=== PATIENT | male | born 1970 | race Two or more races ===

== ENCOUNTER → 2017-03-08 | Outpatient (CLI) | payer OTHER ==
[2017-03-08 12:44] LABS: Aty Lym Flag Slight; CH 26.7; CHCM 31.6; HCT 46.8 % (39.0-53.0); HDW 2.28; HGB 14.6 gm/dL (13.0-17.5); MCH 26.6 pg (25.0-35.0); MCHC 31.2 g/dL (31.0-37.0); MCV 85.1 fL (80.0-100.0); Mean Platelet Volume 7.9; RDW 13.8 % (11.5-15.5); WBC 5.2 k/uL (3.8-10.6); WBC (Perox) 5.21
[2017-03-08 13:04] LABS: ALT 39 U/L (21-72); AST 29 U/L (17-59); Alkaline Phosphatase 59 U/L (38-126); Anion Gap 13 mmol/L; Blood Urea Nitrogen 13 mg/dL (9-20); Calcium 9.9 mg/dL (8.4-10.2); Carbon Dioxide 20 mmol/L (22-30); Chloride 108 mmol/L (98-107); Glucose 91 mg/dL (74-99); Non-African American GFR(MDRD) >60 (>60 ml/min/1.73 sqM); Potassium 4.1 mmol/L (3.5-5.1); Sodium 141 mmol/L (137-145); Total Bilirubin 0.9 mg/dL (0.2-1.3); Total Protein 8.1 g/dL (6.3-8.2)
[2017-03-08 13:36] LABS: Hepatitis B Surface Ag Index 0.06
[2017-03-08 13:42] LABS: Hepatitis B Core IgM Index 0.02
[2017-03-08 13:53] LABS: Hepatitis C Virus IgG Ab Reactive (Negative)
[2017-03-08 14:19] LABS: Add Differential Manual Differential
[2017-03-08 14:22] LABS: Nucleated Red Blood Cells 0 /100 WBC (0-0); Polychromasia Present; Total Cells Counted 100
[2017-03-09 15:45] LABS: HCV Qualitative Result Not detected (Not detected)
== END | disposition home or self-care (01) ==
LOC: LABWHC1 11:46
PROVIDERS: ATTEND Family Medicine
DX: B19.20 Unspecified viral hepatitis C without hepatic coma (principal); Z11.59 Encounter for screening for other viral diseases
CPT/HCPCS: 36415; 80053; 80074; 85025; 87522

== ENCOUNTER 2023-06-03 20:45 | Emergency (ER) | payer OTHER ==
[2023-06-03 20:51] VITALS: RESP 18; TEMP 98.7
--- NOTE | 2023-06-03 21:41 | XR ---
EXAMINATION TYPE: XR cervical spine comp DATE OF EXAM: 06/03/2023 9:21 PM INDICATION: Patient age:Male; 52 years old; Reason for study: neck pain; PHH. COMPARISON: None TECHNIQUE: The cervical spine was imaged in frontal, lateral, odontoid and bilateral oblique. FINDINGS: The osseous structures show normal alignment without evidence of an acute fracture. There are minimal osteophytes noted throughout the cervical spine on the anterior and lateral aspects of the vertebral bodies. The intervertebral disk spaces are narrowed at multiple levels. Pedicles are intact. Soft t issues are within normal limits. The odontoid appears intact. IMPRESSION: 1. No fracture or dislocation. 2. Mild degenerative disc disease changes of the cervical spine.
[2023-06-03] MEDS ORDERED: KETOROLAC 15 MG/ML 1 ML VIAL IM STA (22:02)
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
[2023-06-03 22:33] VITALS: BP 121/81; PULSE 57
== END 2023-06-03 22:33 | disposition home or self-care (01) ==
LOC: EC 20:45
DX: S13.4XXA Sprain of ligaments of cervical spine, initial encounter (principal); V89.2XXA Person injured in unspecified motor-vehicle accident, traffic, initial encounter; Y92.410 Unspecified street and highway as the place of occurrence of the external cause
CPT/HCPCS: 72050; 96372; 99283

== ENCOUNTER → 2023-07-05 | Outpatient (CLI) | payer OTHER ==
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
== END | disposition home or self-care (01) ==
LOC: RADCTMAIN 17:39
PROVIDERS: ATTEND Anesthesiology
DX: S82.872A Displaced pilon fracture of left tibia, initial encounter for closed fracture (principal); S83 Dislocation and sprain of joints and ligaments of knee; V89.2XXA Person injured in unspecified motor-vehicle accident, traffic, initial encounter